=== PATIENT | female | born 1975 | race Caucasian/White ===

== ENCOUNTER 2022-01-20 04:13 | Emergency (ER) | payer OTHER ==
[~2022-01-20] VITALS: Ht 165.1 cm; Wt 134.0 kg
[~2022-01-20 04:13] MED LIST: BACTRIM DS TAB1 EACH PO; CELECOXIB200 MG PO; CELEXA40 MG PO; FISH OIL 1,0001 EAC2 NG; HYDROCODON-ACE1 EA11 PO; MULTI VITAMIN1 EACH PO; [UNRECOGNIZED DRUG - REMARK]
[2022-01-20] MEDS ORDERED: HYDROCODON-ACE1 EA10 PO (04:56)
[2022-01-20] MEDS ORDERED: CRUTCHES XX (04:56)
== END 2022-01-20 05:20 | disposition home or self-care (01) ==
LOC: ED 04:13
DX: S83.91XA Sprain of unspecified site of right knee, initial encounter (principal); Z79.899 Other long term (current) drug therapy; W01.0XXA Fall on same level from slipping, tripping and stumbling without subsequent striking against object, initial encounter
CPT/HCPCS: 73560; 96372; 99283-25; J1885